=== PATIENT | male | born 1980 | race Hispanic/Latino ===

== ENCOUNTER 2022-05-31 00:16 | Emergency (ER) | payer SELFPAY ==
[~2022-05-31] VITALS: Ht 175.3 cm; Wt 93.0 kg
[2022-05-31] MEDS ORDERED: AUGMENTIN 500-1 EACH PO ×2 (00:33→00:40)
== END 2022-05-31 00:41 | disposition home or self-care (01) ==
LOC: FSED 00:32
DX: K11.20 Sialoadenitis, unspecified (principal); R50.9 Fever, unspecified
CPT/HCPCS: 99282